=== PATIENT | male | born 1955 | race Caucasian/White ===

== ENCOUNTER 2017-06-29 22:26 | Emergency (ER) | payer SELFPAY ==
[~2017-06-29] VITALS: Ht 182.9 cm; Wt 100.0 kg
[~2017-06-29 22:26] MED LIST: DUONI NEB; FOSI10TA PO; LEVA750T PO; LEVEMIR SQ; METO25 PO; NOVOLOGSS SQ; OSEL30 PO; OSEL45 PO; PRED20 PO; RANI150 PO; Z.0.OXYGENDME NC
[2017-06-29 22:28] VITALS: BP 146/90; PULSE 148; RESP 18; O2SAT 93
[2017-06-29 22:45] VITALS: BP 138/93; PULSE 155; RESP 15; O2SAT 97
[2017-06-29] MEDS ORDERED: LISI10TA3 PO (22:45)
[2017-06-29] MEDS ORDERED: ZANT150T2 PO (22:45)
[2017-06-29] MEDS ORDERED: METF1000 PO (22:45)
[2017-06-29] MEDS ORDERED: GLYB5TAB3 PO (22:45)
[2017-06-29 22:51] VITALS: RESP 16; O2SAT 96
--- NOTE | 2017-06-29 22:52 | PD ---
HPI Chief Complaint: Cardiac Complaint Time Seen by Provider: 22:40 Travel History International Travel<30 days: No Contact w/Intl Traveler<30days: No Traveled to known affect area: No History of Present Illness HPI The patient is a 61 year old male who presents to the [facility] emergency department with a history of palpations that began at 9:45PM today. He had a needle like pain associated with it in his heart. He had flushed cheeks. He denies diaphoresis, lightheaded sensation, or shortness of breath. He denies any increased caffeine intake. He usually drinks 1 and 1/2 cups per day. The patient incidentally on review of systems also reports that he's had indigestion and newly been taking Zantac over the last 10 days. On review of systems, he denies any recent fevers,cough, congestion, neck pain, abdominal pain, vomiting, diarrhea, urinary symptoms, or neurologic symptoms. PFSH Past Medical History Narrative Medical The patient's past medical history is significant for Pneumonia/ sepsis, influenza 10/2015, SVT, 2011- interstitial lung disease- stess test last done- lung disease thought to be related to an infection from his chickens, diabetes- 185 prior to arrival, hypertension, GERD-newly on Zantac for the last 10 days, kidney stones, hyperlipidemia, history of in the past having a pinched nerve at T7. PCP: Dr. Quan. Arthritis: No Asthma: No Autoimmune Disease: No Anxiety: No Depression: No Heart Rhythm Problems: Yes (Atrial Flutter) Cancer: No Cardiovascular Problems: No High Cholesterol: Yes Chest Pain: No Congestive Heart Failure: No COPD: No Cerebrovascular Accident: No Diabetes: Yes (TYPE TWO ) Patient Takes Glucophage: Yes Diminished Hearing: No Endocrine: No Glaucoma: No Hepatitis: No Hiatal Hernia: No Hypertension: Yes Immune Disorder: No Kidney Stones: Yes Medical other: Yes (REFLUX) Musculoskeletal: No Neurologic: No Psychiatric: No Respiratory: No Migraines: No Seizures: No Sickle Cell Disease: No Sleep Apnea: No Thyroid Disease: No Tetanus Vaccination: < 5 Years Influenza Vaccination: No Past Surgical History Narrative Surgical The patient's past surgical history is significant for biopsy of right lung, lymph node removal-benign. Surgical History: No Previous Surgery Abdominal Surgery: No Cardiac Surgery: No Ear Surgery: No Endocrine Surgery: No Eye Surgery: No Genitourinary Surgery: No Gynecologic Surgery: No Neurologic Surgery: No Oral Surgery: Yes (WISDOM TEETH EXTRACTION) Pacemaker: No Thoracic Surgery: Yes (Right lung biopsy) Other Surgery: Yes Social History Alcohol Use: Yes (SOCIALLY) Tobacco Use: No Substance Use: No Allergies-Medications (Allergen,Severity, Reaction): Coded Allergies: clavulanic acid (Unverified Allergy, Intermediate, 06/29/17) Reported Meds & Prescriptions Reported Meds & Active Scripts Active Reported Glyburide 5 Mg Tab 5 Mg PO DAILY Take with meals at the same time each day Zantac (Ranitidine HCl) 150 Mg Tab 150 Mg PO DAILY Metformin (Metformin HCl) 1,000 Mg Tab 1,000 Mg PO BIDPC Lisinopril 10 Mg Tab 10 Mg PO DAILY Review of Systems Except as stated in HPI: all other systems reviewed are Neg General / Constitutional: No: Fever Eyes: No: Visual changes HENT: No: Headaches Cardiovascular: Positive: Chest Pain or Discomfort, Palpitations, Tachycardia, No: Dyspnea on exertion Respiratory: No: Shortness of Breath Gastrointestinal: No: Abdominal Pain Genitourinary: No: Dysuria Musculoskeletal: No: Pain Skin: No Rash Neurologic: No: Weakness Psychiatric: No: Depression Endocrine: No: Polydipsia Hematologic/Lymphatic: No: Easy Bruising Physical Exam Narrative General: The patient is a well-developed well-nourished male, in no acute distress. Head and Neck exam: Head is normocephalic atraumatic. Eyes: EOMI, pupils are equal round and reactive to light. Nose: Midline septum with pink mucous membranes Mouth: Dentition unremarkable. Moist mucus membranes. Posterior oropharynx is not erythematous. No tonsillar hypertrophy. Uvula midline. Airway patent. Neck: No palpable lymphadenopathy. No nuchal rigidity. No thyromegaly. Cardiovascular: The patient initially had a tachycardic rhythm that is irregular on examination with a heart rate in the 150s, no murmurs, gallops, or rubs. No pulse deficits to the extremities on simultaneous auscultation and palpation of his radial artery. After his initial evaluation, the patient reported suddenly feeling better with heart rate in the 90s. On reexamination the patient is in a normal sinus rhythm without any murmurs gallops or rubs. Repeat ECG confirmed this. Lungs: Clear to auscultation bilaterally. No wheezes, rhonchi, or rales. Abdomen: Soft, without tenderness to palpation in all 4 quadrants of the abdomen. No guarding, rebound, or rigidity. Normal bowel sounds are audible. No tenderness on palpation of McBurney's point. Extremities: No clubbing, cyanosis, or edema. 2+ pulses in all 4 extremities. No calf tenderness on palpation. Back: No costovertebral angle tenderness to palpation. Neurologic Exam: Grossly nonfocal. Skin Exam: No rash noted. Intact skin that is warm and dry. Data Data Last Documented VS Vital Signs Date Time Temp Pulse Resp B/P (MAP) Pulse Ox O2 Delivery O2 Flow Rate FiO2 06/30/17 02:50 98.1 67 16 131/76 (94) 97 06/29/17 23:19 Room Air Orders Orders Electrocardiogram (06/29/17 22:40) Complete Blood Count With Diff (06/29/17 22:40) Comprehensive Metabolic Panel (06/29/17 22:40) Creatine Kinase (Cpk) (06/29/17 22:40) Ckmb (Isoenzyme) Profile (06/29/17 22:40) Troponin I (06/29/17 22:40) B-Type Natriuretic Peptide (06/29/17 22:40) Prothrombin Time / Inr (Pt) (06/29/17 22:40) Act Partial Throm Time (Ptt) (06/29/17 22:40) Lipase (06/29/17 22:40) Magnesium (Mg) (06/29/17 22:40) Thyroid Stimulating Hormone (06/29/17 22:40) Chest, Single Ap (06/29/17 22:40) Iv Access Insert/Monitor (06/29/17 22:40) Ecg Monitoring (06/29/17 22:40) Oximetry (06/29/17 22:40) Diltiazem Inj (Cardizem Inj) (06/29/17 23:01) Electrocardiogram (06/29/17 ) CKMB (06/29/17 22:45) CKMB% (06/29/17 22:45) Electrocardiogram (06/30/17 01:45) Troponin I (06/30/17 01:45) Ed Discharge Order (06/30/17 02:41) Labs Laboratory Tests Test 06/29/17 22:45 06/30/17 01:40 White Blood Count 9.3 TH/MM3 Red Blood Count 4.73 MIL/MM3 Hemoglobin 15.3 GM/DL Hematocrit 45.4 % Mean Corpuscular Volume 95.9 FL Mean Corpuscular Hemoglobin 32.3 PG Mean Corpuscular Hemoglobin Concent 33.7 % Red Cell Distribution Width 12.5 % Platelet Count 218 TH/MM3 Mean Platelet Volume 9.2 FL Neutrophils (%) (Auto) 45.7 % Lymphocytes (%) (Auto) 29.1 % Monocytes (%) (Auto) 7.0 % Eosinophils (%) (Auto) 16.9 % Basophils (%) (Auto) 1.3 % Neutrophils # (Auto) 4.2 TH/MM3 Lymphocytes # (Auto) 2.7 TH/MM3 Monocytes # (Auto) 0.6 TH/MM3 Eosinophils # (Auto) 1.6 TH/MM3 Basophils # (Auto) 0.1 TH/MM3 CBC Comment DIFF FINAL Differential Comment Prothrombin Time 10.5 SEC Prothromb Time International Ratio 1.0 RATIO Activated Partial Thromboplast Time 31.8 SEC Blood Urea Nitrogen 14 MG/DL Creatinine 1.29 MG/DL Random Glucose 193 MG/DL Total Protein 7.9 GM/DL Albumin 4.2 GM/DL Calcium Level 8.8 MG/DL Magnesium Level 2.3 MG/DL Alkaline Phosphatase 67 U/L Aspartate Amino Transf (AST/SGOT) 39 U/L Alanine Aminotransferase (ALT/SGPT) 62 U/L Total Bilirubin 0.4 MG/DL Sodium Level 138 MEQ/L Potassium Level 4.0 MEQ/L Chloride Level 105 MEQ/L Carbon Dioxide Level 23.0 MEQ/L Anion Gap 10 MEQ/L Estimat Glomerular Filtration Rate 57 ML/MIN Total Creatine Kinase 200 U/L Creatine Kinase MB 1.8 NG/ML Troponin I LESS THAN 0.02 NG/ML LESS THAN 0.02 NG/ML B-Type Natriuretic Peptide 7 PG/ML Lipase 267 U/L Thyroid Stimulating Hormone 3rd Gen 4.320 uIU/ML MDM Medical Decision Making Medical Screen Exam Complete: Yes Emergency Medical Condition: Yes Medical Record Reviewed: Yes Interpretation(s) Last Impressions Chest X-Ray 06/29/17 2240 Signed Impressions: Service Date/Time: Thursday, June 29, 2017 22:43 - CONCLUSION: 1. Diminished lung volumes and probable bibasilar scarring. 2. No consolidation. Chandler Sandhu MD Differential Diagnosis SVT, versus atrial flutter, versus acute coronary syndrome, versus electrolyte derangements, versus hyperthyroid disorder Narrative Course During the course of the patients emergency department visit, the patients history, examination, and differential diagnosis were reviewed with the patient. 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 The patient had IV access obtained and blood work sent for analysis. The patient had an ECG done on arrival that shows what appears to be SVT versus atrial flutter, heart rate of 157, no other acute ST segment changes, QRS duration of 102 ms, QTC 338 ms. Shortly after the first EKG the patient reported that he was feeling improved and was noted to be in a sinus rhythm on telemetry. A repeat ECG shows a sinus rhythm heart rate of 94 with an incomplete right bundle branch block, no other acute ST segment changes. The patient reports that he would like to be discharged home. As the patient has been having indigestion and newly taking Zantac over the last 10 days, and reported having a sharp sensation in his chest with the SVT, I did recommend that further testing be done. He was agreeable with this plan. The patient reports that he did take an adult aspirin prior to arrival. The patients laboratory studies were reviewed and remarkable for an initial set of cardiac enzymes that are within normal limits. The patient was agreeable to having a repeat set done. The patient was offered admission, however the patient refuses. The patient reports that he is attending a for his mother in the morning. CBC is remarkable for eosinophilia at 16.9. CMP is remarkable for glucose of 193, AST is 39, CPK 200, troponin I less than 0.02, BNP 7, lipase 267, TSH 4.32, PT 10.5, PTT 31.8. Radiology studies were reviewed and remarkable for a chest x-ray that shows diminished lung volumes and probable bibasilar scarring, no consolidation. The repeat ECG 3 hours after the initial ECG and troponin shows a sinus rhythm, incomplete right bundle branch block, QRS duration 98 ms, QTC 398 ms, no acute ST segment changes. Repeat troponin continues to be less than 0.02. The patient will be discharged home to follow-up with his motorcycle police officer. The patient has remained asymptomatic during his emergency department observation after he converted his SVT on his own. The patient is resting comfortably and feels better, is alert and in no distress. The patients results and examination findings were discussed with the patient. The repeat examination is unremarkable and benign. The history, exam, diagnostic testing, and current condition do not suggest any significant pathology to warrant further testing, continued ED treatment, admission, or surgical evaluation at this point. The vital signs have been stable. The patient does not have uncontrollable pain, intractable vomiting, or other significant symptoms. The patient's condition is stable and appropriate for discharge. The patient will pursue further outpatient evaluation with a primary care physician or other designated or consulting physician as indicated in the discharge instructions. The patient expressed understanding and was agreeable with this plan. Diagnosis Primary Impression: Paroxysmal SVT (supraventricular tachycardia) Referrals: Evan Landin MD 1 day Primary Care Physician 3 days Additional Instructions: Follow-up with your primary care physician regarding your slightly elevated TSH for additional testing. Follow-up with your motorcycle police officer for additional testing including a stress test. Med/Other Pt SpecificInfo: No Change to Meds Disposition: 01 DISCHARGE HOME Condition: Stable Sandy Chacko MD Jun 29, 2017 22:52
[2017-06-29] MEDS ORDERED: DILTIAZEM HCL 25 MG/5 ML VIAL ONE (23:01)
--- NOTE | 2017-06-29 23:02 | RADRPT ---
EXAM DATE/TIME: 06/29/2017 22:43 [facility] COMPARISON: CHEST SINGLE AP, November 10, 2015, 11:19. INDICATIONS : Chest pain and shortness of breath. MEDICAL HISTORY : None. SURGICAL HISTORY : None. ENCOUNTER: Initial ACUITY: 1 day PAIN SCORE: 2/10 LOCATION: Bilateral chest FINDINGS: A single view of the chest demonstrates minimal bibasilar densities likely scarring. Heart normal in size. Diminished lung volumes. The cardiomediastinal contours are unremarkable. Osseous structures a re intact. CONCLUSION: 1. Diminished lung volumes and probable bibasilar scarring. 2. No consolidation. Chandler Sandhu MD on June 29, 2017 at 23:00 Board Certified Radiologist. This report was verified electronically.
[2017-06-29 23:14] LABS: AUTOMATED NEUTROPHIL # 4.2 TH/MM3 (1.8-7.7); BASOPHIL # 0.1 TH/MM3 (0-0.2); BASOPHIL % 1.3 % (0.0-2.0); EOSINOPHIL # 1.6 TH/MM3 (0-0.4); EOSINOPHIL % 16.9 % (0.0-4.0); HEMATOCRIT 45.4 % (39.0-51.0); HEMO FLAGS DIFF FINAL; LYMPH % 29.1 % (9.0-44.0); LYMPHOCYTE # 2.7 TH/MM3 (1.0-4.8); MEAN CELL VOLUME 95.9 FL (80.0-100.0); MEAN CORPUSCULAR HEMOGLOBIN 32.3 PG (27.0-34.0); MEAN CORPUSCULAR HGB CONC 33.7 % (32.0-36.0); NEUT % 45.7 % (16.0-70.0); PLATELET COUNT 218 TH/MM3 (150-450); RED BLOOD COUNT 4.73 MIL/MM3 (4.50-5.90); RED CELL DISTRIBUTION WIDTH 12.5 % (11.6-17.2); WHITE BLOOD COUNT 9.3 TH/MM3 (4.0-11.0)
[2017-06-29 23:19] VITALS: BP 127/64; PULSE 92; RESP 16; O2SAT 99
[2017-06-29 23:25] LABS: APTT (PATIENT) 31.8 SEC (24.3-30.1); PROTHROMBIN TIME - PATIENT 10.5 SEC (9.8-11.6)
[2017-06-29 23:43] LABS: ALKALINE PHOSPHATASE 67 U/L (45-117); ALT (GPT) 62 U/L (12-78); ANION GAP 10 MEQ/L (5-15); AST (GOT) 39 U/L (15-37); BLOOD UREA NITROGEN 14 MG/DL (7-18); CHLORIDE 105 MEQ/L (98-107); CREATINE KINASE 200 U/L (39-308); GLOMERULAR FILTRATION RATE 57 ML/MIN (>89); MAGNESIUM 2.3 MG/DL (1.5-2.5); SODIUM (NA) 138 MEQ/L (136-145); TOTAL BILIRUBIN ADULT 0.4 MG/DL (0.2-1.0)
[2017-06-29 23:56] LABS: CKMB 1.8 NG/ML (0.5-3.6)
[2017-06-30 02:50] VITALS: BP 131/76; TEMP 98.1
--- NOTE | 2017-06-30 10:30 | EKG ---
Date Performed: 06/29/2017 Time Performed: 23:14:28 PTAGE: 61 years EKG: Sinus rhythm LOW QRS VOLTAGE IN PRECORDIAL LEADS INCOMPLETE RIGHT BUNDLE BRANCH BLOCK BORDERLINE ECG Compared to PREVIOUS TRACING sinus rhythm has replaced atrial flutter PREVIOUS TRACIN06/29/2017 2 2.45 DOCTOR: Dimitri Obrien Interpretating Date/Time 06/30/2017 10:28:20
--- NOTE | 2017-06-30 10:30 | EKG ---
Date Performed: 06/29/2017 Time Performed: 22:45:31 PTAGE: 61 years EKG: ATRIAL FLUTTER/TACHYCARDIA WITH RAPID VENTRICULAR RESPONSE SEPTAL MYOCARDIAL INFARCTION ABN ORMAL ECG Compared to PREVIOUS TRACING atrial flutter has replaced Sinus rhythm , diffuse ST changes are new PREVIOUS TRACIN11/05/2015 04.09 DOCTOR: Dimitri Obrien Interpretating Date/Time 06/30/2017 10:28:04
--- NOTE | 2017-06-30 10:31 | EKG ---
Date Performed: 06/30/2017 Time Performed: 01:53:40 PTAGE: 61 years EKG: Sinus rhythm INCOMPLETE RIGHT BUNDLE BRANCH BLOCK BORDERLINE ECG Compared to prior tracing no significant change PREVIOUS TRACING : 06/29/2017 23.14 DOCTOR: Dimitri Obrine Interpretating Date/Time 06/30/2017 10:28:29
== END 2017-06-30 03:01 | disposition home or self-care (01) ==
LOC: NEPC 22:26
DX: I47.1 Supraventricular tachycardia (principal); I45.10 Unspecified right bundle-branch block; K30 Functional dyspepsia; I48.92 Unspecified atrial flutter; I25.2 Old myocardial infarction; R94.31 Abnormal electrocardiogram [ECG] [EKG]; E11.9 Type 2 diabetes mellitus without complications; E78.00 Pure hypercholesterolemia, unspecified; I10 Essential (primary) hypertension
CPT/HCPCS: 71010; 80053; 82550; 82552; 83690; 83735; 83880; 84443; 84484; 85025; 85610; 85730; 93005; 99285

== ENCOUNTER → 2017-08-22 | Day surgery (SDC) | payer SELFPAY ==
[~2017-08-22] MED LIST changes: +DEXAMETHASONE SOD PHOS 4 MG/ML VIAL ONE; -DUONI NEB; +EPINEPHrine HCL (1:1000) 1 MG/ML VIAL ONE; -FOSI10TA PO; +GLYB5TAB3 PO; +HYALURONIDASE/LIDOCAINE/BUPIVACAINE 5 ML SYR ONE; +LACTATED RINGER'S 1000 ML INJ 1,000 ML ONE; -LEVA750T PO; -LEVEMIR SQ; +LISI10TA3 PO; +METF1000 PO; -METO25 PO; +MOXIFLOXACIN 0.5% OPHT SOLN 3 ML BTL ONE; -NOVOLOGSS SQ; +ONDANSETRON HCL 4 MG/2 ML VIAL IV PUSH ONE; -OSEL30 PO; -OSEL45 PO; +PHENYLEPHRINE HCL 2.5 % OPTH SOLN 15 ML BTL ONE; -PRED20 PO; +PROPARACAINE HCL 0.5% OPHT SOLN 15 ML BTL ONE; +PROPOFOL 200 MG/20 ML AMP IV ONE; -RANI150 PO; +SODIUM CHLORIDE 0.9% INJ 10 ML ONE; +TETRACAINE 0.5% OPTH SOLN 4 ML BTL ONE; +TOBRAMYCIN/DEXAMETHASONE OPTH OINT 3.5 GM TUBE ONE; -Z.0.OXYGENDME NC; +ZANT150T2 PO; +ceFAZolin INJ 1,000 MG VIAL ONE; +prednisoLONE ACETATE 1% OPHT SUSP 5 ML BTL ONE
--- NOTE | 2017-08-29 23:04 | MP ---
cc: MILTON BOYD MD DATE OF SURGERY: PREOPERATIVE DIAGNOSIS: Large retinal detachment, multiple breaks, left eye. PROCEDURE PERFORMED: Pars plana vitrectomy retinal detachment repair, endolaser, air-fluid exchange, insertion of 10% C3F8 gas left eye. COMPLICATIONS: None BLOOD LOSS: Less than 1 cc. ANESTHESIA: Dr. Byrd, general. INDICATIONS FOR THE PROCEDURE: This delightful patient presented with a large retinal detachment into his macula of his left eye. The patient had multiple retinal breaks and some proliferative vitreoretinopathy and elected for surgical correction with pars vitrectomy. The patient understood the risks, benefits and alternatives and risk of recurrent scarring and recurrent detachment. DESCRIPTION OF THE PROCEDURE IN DETAIL: Informed consent was obtained, the patient was brought to the operating room and general anesthesia was established. The left eye was prepped and draped in sterile fashion with Betadine in the conjunctival fornix. The core vitreous was evacuated and vitreous traction to the peripheral retina was relieved especially in areas of retinal breaks. PFO was instilled and retina reattached. Subretinal fluid was removed from the retinal breaks. Proliferative followup with vitreoretinopathy inferiorly was noted and was preventing complete reattachment. Some PFO was removed, proliferative vitreoretinopathy was removed with the vitrector and PFO re-instilled. Retina was noted to reattach quite nicely. Endolaser was applied surrounding retinal multiple retinal breaks with the largest break in the inferior nasal quadrant. Endolaser was applied 360 degrees with multiple areas of retinal thinning. Air-fluid exchange was carried out and the retina remained completely reattached. 10% C3F8 gas was instilled. Trocars removed and sclerotomies closed. The conjunctiva was reapproximated. Subconjunctival injection of Ancef and dexamethasone was given. The eye was patched with Tobramycin ointment. The patient was brought to the recovery room in stable condition to continue followup with [facility] for his postoperative care. MD KYLE Petit/JCC /7:57 AM /10:43 PM
== END | disposition home or self-care (01) ==
LOC: ESDC 13:40
PROVIDERS: ATTEND Ophthalmology
DX: H33.022 Retinal detachment with multiple breaks, left eye (principal); E11.3592 Type 2 diabetes mellitus with proliferative diabetic retinopathy without macular edema, left eye; Z79.84 Long term (current) use of oral hypoglycemic drugs
CPT/HCPCS: 00145; 67108; 82948; J0171; J0690; J1100; J2405; J3010; J7120